=== PATIENT | female | born 1995 | race African-American/Black ===

== ENCOUNTER 2024-03-10 17:52 | Emergency (ER) | payer MEDICAID ==
[~2024-03-10] VITALS: Ht 170.2 cm; Wt 105.0 kg
[~2024-03-10 17:52] MED LIST: PREN-88 PO
[2024-03-10 18:05] VITALS: BP 141/92; PULSE 119; RESP 17; O2SAT 95
[2024-03-10 20:11] VITALS: TEMP 98.6
[2024-03-10] MEDS: ACETAMINOPHEN 325MG TABLET PO ONE (20:11)
== END 2024-03-10 19:52 | disposition home or self-care (01) ==
LOC: ER 18:01
DX: S89.91XA Unspecified injury of right lower leg, initial encounter (principal); W18.39XA Other fall on same level, initial encounter; Y93.89 Activity, other specified; Y92.89 Other specified places as the place of occurrence of the external cause; Y99.8 Other external cause status
CPT/HCPCS: 73562; 99283; Z7610